=== PATIENT | male | born 1960 | race Caucasian/White ===

== ENCOUNTER 2017-08-11 16:50 | Emergency (ER) | payer OTHER ==
[~2017-08-11 16:50] MED LIST: POLY10O LEFT EYE; Z.0.NO CURRENT MEDS
[2017-08-11 17:00] VITALS: BP 158/115; PULSE 122; RESP 18; TEMP 98; O2SAT 97
[2017-08-11 19:29] VITALS: BP 156/103
--- NOTE | 2017-08-11 21:56 | PD ---
HPI Chief Complaint: Psychiatric Symptoms Time Seen by Provider: 21:42 Travel History International Travel<30 days: No Contact w/Intl Traveler<30days: No Traveled to known affect area: No History of Present Illness HPI 57-year-old white male presents to emergency department under act by PD from [place]. The patient is homeless. He states that he was crossing the street on his bicycle when he was contacted by police. They felt he was too intoxicated. He is brought here to [place] under his act. Patient has no suicidal homicidal ideation. The patient will be allowed to sleep off here in the ER. There is no evidence of trauma. He has no medical complaints. [facility] Past Medical History Narrative Medical Chronic alcohol abuse, homelessness Tetanus Vaccination: < 5 Years Past Surgical History Surgical History: No Previous Surgery Social History Alcohol Use: Yes (2 drinks per day) Tobacco Use: No Substance Use: No Allergies-Medications (Allergen,Severity, Reaction): Coded Allergies: No Known Allergies (Unverified Adverse Reaction, Unknown, 08/11/17) Reported Meds & Prescriptions Reported Meds & Active Scripts Active Polytrim Opth (Polymyxin/Trimethoprim Sulfate) 10 Ml Soln 1 Drop LEFT EYE Q4 7 Days Reported No Current Meds (Miscellaneous Medication) Misc Review of Systems General / Constitutional: No: Fever Eyes: No: Visual changes HENT: No: Headaches Cardiovascular: No: Chest Pain or Discomfort Respiratory: No: Shortness of Breath Gastrointestinal: No: Abdominal Pain Genitourinary: No: Dysuria Musculoskeletal: No: Pain Skin: No Rash Neurologic: No: Weakness Psychiatric: Positive: Substance Abuse, No: Anxiety, Depression, Suicidal Ideations, Disorder of Thought, Mood Disorder, Homicidal Ideation Endocrine: No: Polydipsia Hematologic/Lymphatic: No: Easy Bruising Physical Exam Narrative GENERAL: Well-nourished, well-developed patient. Smells of EtOH. Appears intoxicated. SKIN: Warm and dry. HEAD: Normocephalic and atraumatic. EYES: No scleral icterus. No injection or drainage. ENT: No nasal drainage noted. Mucous membranes pink. Airway patent. NECK: Supple, trachea midline. Moves head freely without obvious discomfort. CARDIOVASCULAR: Regular rate and rhythm without murmurs, gallops, or rubs. RESPIRATORY: Breath sounds equal bilaterally. No accessory muscle use. GASTROINTESTINAL: Abdomen soft, non-tender, nondistended. EXTREMITIES: No cyanosis or edema. BACK: Nontender without obvious deformity. No CVA tenderness. NEURO: Patient is alert and oriented. no sensorimotor deficits. Nonfocal. Normal speech. PSYCH: No delusions. No auditory or visual hallucinations. Data Data Last Documented VS Vital Signs Date Time Temp Pulse Resp B/P (MAP) Pulse Ox O2 Delivery O2 Flow Rate FiO2 08/11/17 19:29 156/103 (120) 08/11/17 17:00 98.0 122 18 97 Orders Orders Ed Discharge Order (08/11/17 21:52) [facility] Medical Decision Making Medical Screen Exam Complete: Yes Emergency Medical Condition: Yes Medical Record Reviewed: Yes Differential Diagnosis Differential diagnoses: Alcohol intoxication, substance abuse, electrolyte abnormality, malingering Narrative Course This is a 57-year-old white male who presents under [place] act due to alcohol intoxication. The patient has been allowed to sleep it off here in the examination room. The patient now has become sober. He is up to the bathroom and walks with a steady gait. His speech is now clear. The patient is from [place]. He states that police brought him here to [place] as opposed to taking him to [facility]. I have requested the patient to complain to PD once he gets back home in [facility] regarding his transportation here to [place] as opposed to the closest facility. A copy of the patient's [place] act has been given to Dr. GRANT This is alcohol intoxication Diagnosis Primary Impression: Alcohol intoxication Qualified Codes: F10.920 - Alcohol use, unspecified with intoxication, uncomplicated Patient Instructions: General Instructions Additional Instructions: Rest. Increase fluids. Avoid alcohol. Avoid illegal substances. Follow-up with [facility] for detox. Do not operate a car or any heavy machinery under the influence of alcohol or drugs. Follow-up with a medical doctor this week. Return to the ER for emergencies Med/Other Pt SpecificInfo: No Meds Exist/No RX given Disposition: 01 DISCHARGE HOME Condition: Stable Christopher Hurd Aug 11, 2017 21:56
== END 2017-08-12 06:26 | disposition home or self-care (01) ==
LOC: NEDAMB 16:50
DX: F10.129 Alcohol abuse with intoxication, unspecified (principal); Z59.0 Homelessness
CPT/HCPCS: 99282